=== PATIENT | male | born 1970 | race Caucasian/White ===

== ENCOUNTER 2023-08-06 07:09 | Day surgery (SDC) | payer OTHER, SELFPAY ==
[2023-05-11 14:20] VITALS: BMI 35.1
[2023-07-21 09:58] VITALS: BMI 31.9
--- NOTE | 2023-08-05 12:04 | PM.HPGS ---
History of Present Illness History of Present Illness Consent: Risks, benefits, and alternatives have been discussed and questions answered. Patient agrees to proceed with procedure. Chief complaint: Neoplasm Screening Narrative: Rosas Dorsey is a 53 year old male referred for colon cancer screening. Review of Systems Review of Systems: All systems reviewed & are unremarkable except as noted in HPI and below PMFSH Past Medical History Medical History Healthy adult Social History Social History Smoking status: Never smoker Alcohol intake: current Alcohol use details: 3-4 beers/day Substance use: never Substance use type: does not use Living arrangements: with family Spiritual care concerns: No Meds Home Medications and Allergies Home Medications Medication Instructions Recorded Confirmed Type fluoxetine 20 mg capsule 20 mg PO DAILY 07/21/23 08/06/23 History Allergies Allergy/AdvReac Type Severity Reaction Status Date / Time No Known Allergies Allergy Verified 08/06/23 07:39 Exam Const: General: alert Orientation/consciousness: patient oriented x3 Resp: Auscultation: clear to auscultation bilaterally Cardio: Rhythm: regular rhythm GI: GI Palp: Yes Soft to palpation and No Tenderness to palpation present (GI) Neuro: General: patient oriented x3 Assessment and Plan Assessment and plan (1) Colon cancer screening: Code(s): Z12.11 - Encounter for screening for malignant neoplasm of colon Status: Acute Assessment and Plan: Colonoscopy with possible biopsy or polypectomy or cautery or injection of substances.
--- NOTE | 2023-08-06 07:23 | WPDANESEPPF ---
Anes - Initial Pre Proc Eval Procedure: Operation Date: 08/06/23 09:00 Proposed Procedures p Screening Colonoscopy - Bill Schroeder MD Date/Time: 08/06/23 07:23 Surgeon: Bill Schroeder MD Pre Op Diagnosis: Neoplasm Screening Patient Data Age: 53 Gender: M Height: 1.8 m Weight: 104 kg Allergies Allergy/AdvReac Type Severity Reaction Status Date / Time No Known Allergies Allergy Verified 08/06/23 07:39 Home Medications Medication Instructions Recorded Confirmed Type fluoxetine 20 mg capsule 20 mg PO DAILY 07/21/23 08/06/23 History Patient hx anesthesia problems: none Family hx anesthesia problems: none Results Review: All pre-operative results and documents have been reviewed as part of the pre-operative evaluation. [facility] Past Medical History Medical History (Updated 08/05/23 @ 12:05 by Bill Schroeder MD) Healthy adult Social History Social History (Updated 08/06/23 @ 08:06 by Serjio Arredondo DO) Smoking status: Never smoker Alcohol intake: current Alcohol use details: 3-4 beers/day Substance use: never Substance use type: does not use Living arrangements: with family Spiritual care concerns: No Anes - Eval Final PreProcedure Day of Procedure 08/06/23 07:23 Patient weight: obese Heart: regular rate and rhythm Lungs: clear to auscultation Airway: Mallampati scale class II Neurological: alert and oriented Last oral intake: >/= 8 hours ASA classification: III Emergent: no Anesthetic plan: proceed Anesthesia type and monitoring: general GIVS and standard monitoring Results Review: All pre-operative results and documents have been reviewed as part of the pre-operative evaluation. Informed Consent: The patient's anesthetic plan and its attendant risks and benefits were discussed with the patient/family/POA. Questions were solicited and answers provided to the satisfaction of the patient/family/POA.
[2023-08-06 07:40] VITALS: BP 156/108; PULSE 87; RESP 16; TEMP 36.8; O2SAT 100
[2023-08-06] MEDS: LACTATED RINGERS 1,000 ML 150 ML IV CONT (07:49)
[2023-08-06 09:12] VITALS: BP 120/84; PULSE 76; RESP 18; O2SAT 100
[2023-08-06 09:22] VITALS: BP 130/88; PULSE 60; RESP 16; O2SAT 100
[2023-08-06 09:32] VITALS: BP 138/88; PULSE 60; RESP 16; O2SAT 100
--- NOTE | 2023-08-06 13:06 | WPDANESPN ---
Anes - Prog Note Post-Op Date/Time: 08/06/23 13:06 Cardiovascular status: normal Respiratory status: normal Airway patency: baseline Mental status: baseline Post-Op hydration status: normal Vital Signs: Last Vital Signs Temp 36.8 C 08/06/23 07:40 Pulse 60 08/06/23 09:32 Resp 16 08/06/23 09:32 BP 138/88 08/06/23 09:32 Pulse Ox 100 08/06/23 09:32 O2 Del Method Room Air 08/06/23 09:32 Pain Score (VAS): 0 I/O: Intake & Output 08/05/23 08/06/23 08/06/23 23:59 07:59 15:59 Intake Total 1300 Balance 1300 Post-procedural complaints: none Patient Feedback: Patient satisfied with anesthetic care. Other Findings: Patient vital signs back to baseline. Patient denies nausea and vomiting. Patient's pain under control. Patient OK for discharge.
== END 2023-08-06 09:55 | disposition home or self-care (01) ==
PROVIDERS: PCP Internal Medicine; Visit Provider Internal Medicine Gastroenterology
PROC: 0DJD8ZZ Inspection of Lower Intestinal Tract, Via Natural or Artificial Opening Endoscopic (ICD-10-PCS; CPT 45378; principal; 2023-08-06 09:00)
DX: Z12.11 Encounter for screening for malignant neoplasm of colon (principal); D12.5 Benign neoplasm of sigmoid colon; K57.30 Diverticulosis of large intestine without perforation or abscess without bleeding; K64.8 Other hemorrhoids
CPT/HCPCS: 45385

== ENCOUNTER 2023-08-06 08:00 | Outpatient (NON) | payer OTHER, SELFPAY | END 2023-08-06 08:01 | disposition home or self-care (01) | PROVIDERS: PCP Internal Medicine; Visit Provider Internal Medicine Gastroenterology | DX: Z12.11 Encounter for screening for malignant neoplasm of colon (principal) | CPT/HCPCS: 88305 ==